=== PATIENT | female | born 1990 | race Caucasian/White ===

== ENCOUNTER 2016-08-15 09:37 | Emergency (ER) | payer OTHER ==
[~2016-08-15] VITALS: Ht 167.6 cm; Wt 72.6 kg
[2016-08-15 09:37] VITALS: BP 00/00
== END 2016-08-15 09:43 | disposition expired ==
LOC: EDBD 09:37 → ED 09:37
DX: I46.9 Cardiac arrest, cause unspecified (principal); F19.10 Other psychoactive substance abuse, uncomplicated
CPT/HCPCS: J0171; J3490